=== PATIENT | female | born 1980 | race Asian ===

== ENCOUNTER → 2020-07-25 09:38 | Outpatient (BNVA) | payer MEDICAID, SELFPAY | PROVIDERS: Visit Provider Advanced Practice Midwife | DX: Z39.2 Encounter for routine postpartum follow-up (principal); Z39.1 Encounter for care and examination of lactating mother | CPT/HCPCS: 99212 ==

== ENCOUNTER 2020-08-14 11:05 | Outpatient (REF) | payer MEDICAID, SELFPAY ==
[2020-08-15 10:29] LABS: CT PCR NOT DETECTED (Not Detect.); NG PCR NOT DETECTED (Not Detect.)
[2020-08-15 13:03] LABS: BV Int Neg Control Negative (Negative); BV Int Pos Control Positive (Positive)
== END 2020-08-14 11:06 | disposition home or self-care (01) ==
LOC: HO.LAB 11:05
PROVIDERS: Visit Provider Advanced Practice Midwife
DX: Z39.1 Encounter for care and examination of lactating mother (principal); R10.2 Pelvic and perineal pain; Z20.2 Contact with and (suspected) exposure to infections with a predominantly sexual mode of transmission; R73.09 Other abnormal glucose
CPT/HCPCS: 87480; 87491; 87510; 87591; 87660; 99212

== ENCOUNTER 2020-08-18 10:16 | Outpatient (REF) | payer MEDICAID, SELFPAY ==
[2020-08-18 11:56] LABS: Glucose Fasting 93 mg/dL (60-99)
[2020-08-18 13:09] LABS: Glucose 1 Hour 196 mg/dL
[2020-08-18 14:02] LABS: Glucose 2 Hour 143 mg/dL
== END 2020-08-18 10:17 | disposition home or self-care (01) ==
LOC: HO.LAB 10:16
PROVIDERS: Visit Provider Advanced Practice Midwife
DX: Z13.89 Encounter for screening for other disorder (principal)

== ENCOUNTER → 2020-09-01 12:28 | Outpatient (BNVA) | payer MEDICAID, SELFPAY | PROVIDERS: Visit Provider Advanced Practice Midwife | DX: Z76.89 Persons encountering health services in other specified circumstances (principal) ==

== ENCOUNTER → 2021-06-15 09:44 | Outpatient (BNVA) | payer MEDICAID, SELFPAY | PROVIDERS: Visit Provider Obstetrics & Gynecology | DX: Z34.90 Encounter for supervision of normal pregnancy, unspecified, unspecified trimester (principal) | CPT/HCPCS: 99212 ==

== ENCOUNTER 2021-06-15 13:57 | Outpatient (REF) | payer MEDICAID, SELFPAY ==
--- NOTE | ~2021-06-15 | US_ITS ---
EXAMINATION: US OBSTETRICAL ULTRASOUND CLINICAL INFORMATION: Unsure LMP. No heart tone. COMPARISON: None. LMP: 03/18/2021. Gestational age by maternal dates is 12 weeks 5 days. Estimated date of delivery by maternal dates is 12/23/2021. TECHNIQUE: Transabdominal first trimester OB ultrasound FINDINGS: There is an intrauterine gestational sac. [place]-rump length measures 1.2 cm. This would suggest gestational age of 7 weeks 3 days with estimated date of delivery of 01/29/2022. This is significantly behind date from LMP. No heart activity is seen. There is a yolk sac. This appears irregularly shaped and calcified. The cervix is normal appearing. The maternal ovaries are normal. The right maternal ovary measures 2.8 x 2.1 x 2.6 cm and the left measures 2.9 x 0.9 x 1.3 cm. There is no fluid in the maternal pelvis. US/US OB <= 14 weeks fetus IMPRESSION: Single intrauterine gestation. No heart activity is seen and dates are significantly behind date from LMP. Ultrasound appearance is concerning for demise. Findings were communicated with Loyda nurse link trainer maintenance worker by the invasive cardiovascular technologist at the completion of the exam on 06/15/2021 at 2:20 PM.
== END 2021-06-15 13:58 | disposition home or self-care (01) ==
LOC: HO.HMGCX 13:57
PROVIDERS: Visit Provider Obstetrics & Gynecology
DX: Z34.91 Encounter for supervision of normal pregnancy, unspecified, first trimester (principal)
CPT/HCPCS: 76801

== ENCOUNTER 2021-06-29 11:38 | Outpatient (REF) | payer MEDICAID, SELFPAY ==
[2021-06-29 14:21] LABS: HCG Quantitative 57 mIU/mL
== END 2021-06-29 11:39 | disposition home or self-care (01) ==
LOC: HO.LAB 11:38
PROVIDERS: PCP Internal Medicine; Visit Provider Obstetrics & Gynecology
DX: O03.9 Complete or unspecified spontaneous abortion without complication (principal)
CPT/HCPCS: 36415; 84702; 99212

== ENCOUNTER 2021-07-20 10:59 | Outpatient (REF) | payer MEDICAID, SELFPAY ==
[2021-07-20 14:55] LABS: HCG Quantitative 4 mIU/mL
== END 2021-07-20 11:00 | disposition home or self-care (01) ==
LOC: HO.LAB 10:59
PROVIDERS: Visit Provider Obstetrics & Gynecology
DX: O03.9 Complete or unspecified spontaneous abortion without complication (principal)
CPT/HCPCS: 36415; 84702

== ENCOUNTER → 2021-09-15 13:59 | Outpatient (BNVA) | payer MEDICAID, SELFPAY | PROVIDERS: Visit Provider Obstetrics & Gynecology | DX: Z30.430 Encounter for insertion of intrauterine contraceptive device (principal) | CPT/HCPCS: 58300 ==

== ENCOUNTER → 2021-10-12 09:40 | Outpatient (BNVA) | payer MEDICAID, SELFPAY | PROVIDERS: Visit Provider Obstetrics & Gynecology | DX: Z30.431 Encounter for routine checking of intrauterine contraceptive device (principal) | CPT/HCPCS: 99212 ==

== ENCOUNTER → 2021-11-30 12:54 | Outpatient (BNVA) | payer MEDICAID, SELFPAY | PROVIDERS: Visit Provider Obstetrics & Gynecology ==

== ENCOUNTER 2023-07-12 11:52 | Outpatient (REF) | payer MEDICAID, SELFPAY | END 2023-07-12 11:53 | disposition home or self-care (01) | LOC: HO.CHCLDS 11:52 | PROVIDERS: Visit Provider Internal Medicine | DX: I10 Essential (primary) hypertension (principal) | CPT/HCPCS: 36415; 80053; 80061; 83036; 84443; 85025 ==

== ENCOUNTER 2023-08-05 14:01 | Outpatient (REF) | payer MEDICAID, SELFPAY ==
--- NOTE | ~2023-08-05 | MM_ITS ---
EXAMINATION: MM SCREENING DIGITAL BREAST TOMOSYNTHESIS, BILATERAL CLINICAL INFORMATION: Screening. Asymptomatic. COMPARISON: Mammography: There are no prior mammograms for comparison. This is a baseline study. TECHNIQUE: Digital breast tomosynthesis is performed in both the craniocaudal and mediolateral oblique views along with computer-aided detection (CAD). Synthesized 2D images are generated from the tomosynthesis. FINDINGS: There are scattered areas of fibroglandular density (ACR BI-RADS breast composition Category b). There are no significant masses, abnormal calcifications, or other abnormalities. MM/MM tomosynthesis screening BI IMPRESSION: No mammographic evidence of malignancy. ASSESSMENT: BI-RADS BI-RADS 1 - Negative RECOMMENDATION: Routine annual mammography screening. 1 year F/U This examination should not preclude the clinical evaluation of a suspicious palpable abnormality. This patient's information was entered into a reminder system with a target due date for their next mammogram.
== END 2023-08-05 14:02 | disposition home or self-care (01) ==
LOC: HO.MAMMO 14:01
PROVIDERS: PCP Internal Medicine; Visit Provider Internal Medicine
DX: Z12.31 Encounter for screening mammogram for malignant neoplasm of breast (principal)
CPT/HCPCS: 77063; 77067

== ENCOUNTER → 2023-08-05 14:30 | Outpatient (BNV) | payer MEDICAID, SELFPAY | PROVIDERS: PCP Internal Medicine; Visit Provider Radiology Diagnostic Radiology | DX: Z12.31 Encounter for screening mammogram for malignant neoplasm of breast (principal) | CPT/HCPCS: 77063; 77067 ==

== ENCOUNTER 2023-08-09 19:11 | Outpatient (REF) | payer MEDICAID, SELFPAY ==
[2023-08-12 03:53] LABS: HPV mRNA E6/E7 rflx Not Detected (Not Detected)
== END 2023-08-09 19:12 | disposition home or self-care (01) ==
LOC: HO.CHCLNP 19:11
PROVIDERS: Visit Provider Advanced Practice Midwife
DX: Z12.4 Encounter for screening for malignant neoplasm of cervix (principal); Z11.51 Encounter for screening for human papillomavirus (HPV)
CPT/HCPCS: 87624; 88142

== ENCOUNTER 2024-12-20 12:40 | Outpatient (REF) | payer MEDICAID, SELFPAY ==
[2024-12-20 14:17] LABS: MANUAL DIFF FLAG NO
[2024-12-20 14:20] LABS: Basophils Absolute Auto 0.1 X10*3/uL (0.0-0.2); Basophils Percent Auto 1.3 % (0-2); Eosinophils Absolute Auto 0.7 X10*3/uL (0.0-0.4); Eosinophils Percent Auto 7.5 % (0-4); Hemoglobin 13.3 g/dl (12.0-16.0); Imm Gran Abs Auto 0.03 X10*3/uL (0.00-0.03); Imm Gran Pct Auto 0.3 % (0.0-0.4); Lymphocytes Absolute Auto 2.8 X10*3/uL (1.2-4.9); Lymphocytes Percent Auto 31.1 % (20-40); Mean Corpuscular HGB Conc 34.1 g/dl (31.0-35.0); Mean Corpuscular Hemoglobin 30.3 pg (27.0-33.0); Mean Corpuscular Volume 88.8 fL (80.0-98.0); Mean Platelet Volume 9.5 fL (9.4-12.3); Monocytes Absolute Auto 0.5 X10*3/uL (0.1-1.2); Neutrophils Absolute Auto 4.8 x10*3/uL (2.0-8.3); Neutrophils Percent Auto 53.8 % (45-73); Platelet Count 307 X10*3/uL (160-400); Red Blood Count 4.39 X10*6/uL (4.20-5.50); Red Cell Distribution Width 12.5 % (11.0-16.0)
[2024-12-20 14:36] LABS: Estimated Average Glucose 103 mg/dL; Hemoglobin A1c % 5.2 % (<6.0)
[2024-12-20 15:21] LABS: Alanine Aminotransferase 45 U/L (0-31); Albumin Level 4.6 g/dL (3.5-5.0); Alkaline Phosphatase 73 U/L (39-117); Anion Gap 12 (12-20); Aspartate Amino Transferase 37 U/L (5-31); Bilirubin Total 0.8 mg/dL (0.0-1.0); Blood Urea Nitrogen 11 mg/dL (9-16); Calcium 9.8 mg/dL (8.4-10.2); Carbon Dioxide 29 mmol/L (22-29); Chloride 102 mmol/L (96-108); Cholesterol 165 mg/dL (<200); Estimated Glomerular Filt Rate > 60; Glucose Random 80 mg/dL (60-115); HDL Cholesterol 45 mg/dL (>40); LDL Cholesterol Calculated 108 mg/dL (<100); Potassium 3.5 mmol/L (3.3-5.1); Sodium 139 mmol/L (135-145); Total Protein 8.6 g/dL (6.5-8.0); Triglycerides 62 mg/dL (<150)
[2024-12-20 15:39] LABS: TSH reflex Free T4 0.87 uIU/mL (0.32-4.0)
== END 2024-12-20 12:41 | disposition home or self-care (01) ==
LOC: HO.CHCLDS 12:40
PROVIDERS: Visit Provider Internal Medicine
DX: I10 Essential (primary) hypertension (principal)
CPT/HCPCS: 36415; 80053; 80061; 83036; 84443; 85025

== ENCOUNTER 2025-08-06 11:03 | Outpatient (REF) | payer OTHER, SELFPAY ==
--- NOTE | 2025-08-06 11:05 | EMG_ITS ---
Chief complaint:? G56.03 Carpal tunnel syndrome, bilateral upper limbs Reason for referral: Evaluate for Carpal Tunnel Syndrome Referred by:? Osvaldo Underwood Procedure done:? Bilateral upper extremities NCS/EMG [place] [id number] x2 Bilateral median and ulnar motor studies were performed. Bilateral median and ulnar mixed sensory studies were performed. Bilateral median and lateral antecubital brachial sensory and radial sensory studies were performed. Bilateral paraspinals were tested with a needle. Findings: Right median mixed distal latencies was borderline prolonged. Otherwise no significant abnormality noted on this test. Impression: Mild right median neuropathy across carpal tunnel. Otherwise no significant abnormality noted. MTDD
== END 2025-08-06 11:04 | disposition home or self-care (01) ==
LOC: HO.NEURO 11:03
PROVIDERS: PCP Internal Medicine; Visit Provider Internal Medicine
DX: G56.03 Carpal tunnel syndrome, bilateral upper limbs (principal)
CPT/HCPCS: 95886; 95913

== ENCOUNTER → 2025-08-06 11:05 | Outpatient (BNV) | payer OTHER, SELFPAY | PROVIDERS: PCP Internal Medicine; Visit Provider Psychiatry & Neurology Neurology | DX: G56.01 Carpal tunnel syndrome, right upper limb (principal) | CPT/HCPCS: 95886; 95912 ==

== ENCOUNTER 2025-08-20 13:29 | Outpatient (REF) | payer OTHER, SELFPAY ==
[2025-08-20 14:50] LABS: Alanine Aminotransferase 149 U/L (0-31); Albumin Level 5.3 g/dL (3.5-5.0); Alkaline Phosphatase 95 U/L (39-117); Anion Gap 13 (12-20); Aspartate Amino Transferase 72 U/L (5-31); Blood Urea Nitrogen 6 mg/dL (9-16); Calcium 10.6 mg/dL (8.4-10.2); Carbon Dioxide 30 mmol/L (22-29); Chloride 103 mmol/L (96-108); Cholesterol 190 mg/dL (<200); Estimated Glomerular Filt Rate > 60; HDL Cholesterol 46 mg/dL (>40); Potassium 3.6 mmol/L (3.3-5.1); Sodium 142 mmol/L (135-145); Total Protein 9.1 g/dL (6.5-8.0); Triglycerides 167 mg/dL (<150)
[2025-08-20 15:23] LABS: Folate 12.9 ng/mL (> or = 4.0); Vitamin B12 1082 pg/mL (200-900)
== END 2025-08-20 13:30 | disposition home or self-care (01) ==
LOC: HO.CHCLDS 13:29
PROVIDERS: Visit Provider Internal Medicine
DX: I10 Essential (primary) hypertension (principal)
CPT/HCPCS: 36415; 80053; 80061; 82607; 82746